=== PATIENT | female | born 1990 | race Caucasian/White ===

== ENCOUNTER 2018-07-20 19:11 | Emergency (ER) | payer OTHER ==
[~2018-07-20] VITALS: Ht 157.5 cm; Wt 52.2 kg
--- OUTSIDE RECORDS SUMMARY | ~2018-07-20 | XMS | Clinical Summary ---
Demographics + + + | Address | [address] | | | [place] [address] | + + + | Home Phone | | + + + | Preferred Language | Unknown | + + + | Marital Status | | + + + | Lutheran Affiliation | 1013 | + + + | Race | Unknown | + + + | Ethnic Group | Unknown | + + + Author + + + | Author | [facility] | | | and [place] | + + + | Organization | [facility] | | | and [place] | + + + | Address | Unknown | + + + | Phone | Unavailable | + + + Support + + + + + | Name | Relationship | Address | Phone | + + + + + | Donavan Luna | ECON | [address] | | | | | [place] [address] | | + + + + + Care Team Providers + +------+ + | Care Spout Positioner Name | Role | Phone | + +------+ + | No, Unknownpcp | PP | | + +------+ + Allergies No Known Allergies Current Medications + + +-------+---------+------+------+-------+ | Prescription | Sig. | Disp. | Refills | Star | End | Statu | | | | | | t | Date | s | | | | | | Date | | | + + +-------+---------+------+------+-------+ | PROGESTERONE IM | Inject 250 mg into | | | | | Activ | | | the muscle Once a | | | | | e | | | week. | | | | | | + + +-------+---------+------+------+-------+ Active Problems Not on file Social History + +-------+ +--------+------+ | Tobacco Use | Types | Packs/Day | Years | Date | | | | | Used | | + +-------+ +--------+------+ | Never Smoker | | | | | + +-------+ +--------+------+ + +---+---+---+ | Smokeless Tobacco: | | | | | Never Used | | | | + +---+---+---+ + + +---------+ + | Alcohol Use | Drinks/We | oz/Week | Comments | | | ek | | | + + +---------+ + | No | | | | + + +---------+ + + + + | Sex Assigned at | Date Recorded | | | | + + + | Not on file | | + + + Last Filed Vital Signs + + + + | Vital Sign | Reading | Time Taken | + + + + | Blood Pressure | 122/73 | 04/13/2018 1800 PST | + + + + | Pulse | 65 | 04/13/2018 1800 PST | + + + + | Temperature | 36.4 C (97.5 F) | 04/13/2018 1521 PST | + + + + | Respiratory Rate | 14 | 04/13/2018 1800 PST | + + + + | Oxygen Saturation | 99% | 04/13/2018 1800 PST | + + + + | Inhaled Oxygen | - | - | | Concentration | | | + + + + | Weight | 53 kg (116 lb 13.5 | 04/13/2018 1202 PST | | | oz) | | + + + + | Height | 157.5 cm (5' 2") | 04/13/2018 1202 PST | + + + + | Body Mass Index | 21.37 | 04/13/2018 1202 PST | + + + + Plan of Treatment + + + + + | Health Maintenance | Due Date | Last Done | Comments | + + + + + | Cervical Cancer | | | | | Screening (Pap) | 3 | | | + + + + + | Vaccine: Influenza | | 06/14/2014 | | | (#1) | 8 | | | + + + + + | Vaccine: | | 06/14/2014 | | | Dtap/Tdap/Td (2 - | 5 | | | | Td) | | | | + + + + + Results Not on filefrom Last 3 Months Insurance +---------+--------+ +--------+ +---------+ | Payer | Benefi | Subscriber | Type | Phone | Address | | | t Plan | ID | | | | | | / | | | | | | | Group | | | | | +---------+--------+ +--------+ +---------+ | | [employer] | [id number] | Indemn | [phone] | | | [address] | | [address] | [phone] | | | | HNFS | | | | | +---------+--------+ +--------+ +---------+ + +--------+ +--------+ + + | Guarantor Name | Accoun | Relation to | Date | Phone | Billing Address | | | t Type | Patient | of | | | | | | | | | | + +--------+ +--------+ + + | DOMINGUEZ LUNA | Person | Self [birth year] Home: | [id number] | | | [place] | | 1990 | [phone] | [place] | | | [place] | | | [phone] | [phone] | + +--------+ +--------+ + +
--- OUTSIDE RECORDS SUMMARY | ~2018-07-20 | XMS | Clinical Summary ---
Demographics + + + | Address | [address] | | | [place] [address] | + + + | Home Phone | | + + + | Preferred Language | Unknown | + + + | Marital Status | | + + + | Sabianism Affiliation | 1013 | + + + | Race | Unknown | + + + | Ethnic Group | Unknown | + + + Author + + + | Author | [facility] | | | and [place] | + + + | Organization | [facility] | | | and [...] | | | | | [place] [address] | | + + + + + Care Team Providers + +------+ + | Care Subpoena Server Name | Role | Phone | + [...] +---------+--------+ +--------+ +---------+ | | [employer] | [id number] | Indemn | [phone] | | [...] | Self [birth year] | Home: | [id number] | | | [place] | | 1990 | [phone] | [place] | | | [place] | | | [phone] | [phone] | + +--------+ +--------+ + +
[~2018-07-20 19:11] MED LIST: PRENATAL VITAM1 EAC2 PO
== END 2018-07-20 22:09 | disposition home or self-care (01) ==
LOC: ED 19:11
DX: O99.89 Other specified diseases and conditions complicating pregnancy, childbirth and the puerperium (principal); R10.9 Unspecified abdominal pain; Z3A.01 Less than 8 weeks gestation of pregnancy
CPT/HCPCS: 36415; 76775; 76801; 76817; 81001; 84702; 85025; 99284-25